=== PATIENT | male | born 1935 | race Two or more races ===

== ENCOUNTER 2017-05-04 13:04 | Emergency (ER) | payer OTHER ==
[~2017-05-04] VITALS: Ht 170.2 cm; Wt 89.3 kg
[2017-05-04 14:02] VITALS: BP 163/56
== END 2017-05-04 14:02 | disposition home or self-care (01) ==
LOC: ED 13:04
DX: S22.32XA Fracture of one rib, left side, initial encounter for closed fracture (principal); W08.XXXA Fall from other furniture, initial encounter; Y93.89 Activity, other specified; Y99.8 Other external cause status; Y92.89 Other specified places as the place of occurrence of the external cause

== ENCOUNTER 2018-12-23 08:03 | Inpatient (IN) | payer OTHER ==
[~2018-12-23] VITALS: Ht 188 cm; Wt 94.3 kg
--- NOTE | 2018-12-23 08:21 | NUR ---
PT BIB [facility] WITH C/O SYNCOPAL EPISODE. COSTUMER ASSISTANT COMPLETE. AT BEDSIDE PT IS AAOX4. RESPS E/U. SKIN IS PINK AND WARM. PT HOOKED UP TO FULL CM. BED IN LOWEST POSITION WITH BED RAILS UP X2 FOR SAFETY. CALL LIGHT WITH IN REACH.
--- NOTE | 2018-12-23 08:22 | NUR ---
ED PHYSICIAN AT BEDSIDE FOR PATIENT EVALUATION. MEDICAL SCREENING EXAMINATION COMPLETED BY ED PHYSICIAN DR. ARREGUIN
[2018-12-23 09:19] LABS: CALCIUM 8.7 mg/dL (8.5-10.1); CARBON DIOXIDE 28.8 mmol/L (21-32); CHLORIDE SERUM 104 mmol/L (98-107); CREATININE SERUM 0.8 mg/dL (0.7-1.3); GLUCOSE SERUM 116 mg/dL (74-106); POTASSIUM SERUM 4.5 mmol/L (3.5-5.1); SODIUM SERUM 141 mmol/L (136-145)
[2018-12-23 09:23] LABS: ALBUMIN 3.8 g/dL (3.4-5.0); ALKALINE PHOSPHATASE 100 U/L (46-116); ALT/SGPT 30 U/L (16-63); AST/SGOT 34 U/L (15-37); CHOLESTEROL 164 mg/dL (<200); HDL CHOLESTEROL 48 mg/dL (40-60)
[2018-12-23 09:43] LABS: TOTAL PROTEIN, SERUM 8.4 g/dL (6.4-8.2)
--- NOTE | 2018-12-23 09:49 | NUR ---
PT RESTING IN SEMI-FOWLERS POSITION. NO ACUTE DISTRESS NOTED AEB PT CALM AND COOPERATIVE, PT SPEAKING IN FULL SENTANCES, PT AAOX4, RESPS EVEN AND UNLABORED, HR=74 RR=17 SP02=97% ON RA.
--- NOTE | 2018-12-23 10:20 | NUR ---
PT'S DAUGHTER CALLED. HANDED PT PHONE SO HE CAN TALK TO HER. RESPS E/U, SKIN IS PINK, WARM AND DRY, PT CALM AND COOPERATIVE.
[2018-12-23 10:30] LABS: BASOPHIL % 0.3 % (0-2); PLATELET COUNT 140 x10^3mcL (130-400)
--- NOTE | 2018-12-23 11:09 | NUR ---
ANDRES GALILEA IS DAUGHTER AND PRIMARY CONTACT [phone].
--- NOTE | 2018-12-23 11:10 | NUR ---
PT C/O PAIN LOCATED IN BACK AND HIP. PT STS "IT HURTS WHEN I MOVE". DR. ARREGUIN MADE AWARE. NEW ORDERS. SEE EMAR FOR DETAILS.
--- NOTE | 2018-12-23 11:12 | NUR ---
DAUGHTER ANDRES IS TRYING TO GET LIST OF MEDICATIONS. SON NOW AT BEDSIDE. NO CHANGE IN PT STATUS. PT NOTED JOKING WITH DAUGHTER AND SMILING.
--- NOTE | 2018-12-23 11:39 | NUR ---
LOCAL SUSANNAH GODDARD IS GRANDSON AND HE LIVES IN THE [place] IF YOU NEED ANOTHER POINT OF CONTACT [phone]
--- NOTE | 2018-12-23 13:43 | NUR ---
REPORT GIVEN TO NITHIN FROM TELE UNIT TO ASSUME CARE.
--- NOTE | 2018-12-23 13:44 | NUR ---
RECEIVED REPORT FROM ED NURSE. PATIENT WILL BE COMMING UP TO THE FLOOR SHORTLY.
[2018-12-23 14:11] LABS: UA SPECIFIC GRAVITY 1.025 (1.005-1.035); microscopic required? YES
[2018-12-23 14:12] LABS: urine erythrocyte 2+ (NEGATIVE)
--- NOTE | 2018-12-23 14:40 | NUR ---
CONTACTED DR. ALEXANDER TOLD HIM ABOUT POSITIVE UA. TELEPHONE ORDER PER DR ALEXANDER, CONTINUE ROCEPHIN 1 GRAM IV DAILY FOR INFECTION.
[2018-12-23 14:48] VITALS: BP 165/98
--- NOTE | 2018-12-23 14:50 | NUR ---
SPOKE WITH DR ALEXANDER REGARDING POSITIVE UA. TELEPHONE ORDER PER DR ALEXANDER. ROCEPHIN 1 GRAM IV DAILY.
--- NOTE | 2018-12-23 15:03 | NUR ---
RECEIVED PT FROM ER, PT ADMIT FOR SYNCOPE,DEHYDRATION, PT IS A/O X4, VERBAL RESPONSIVE, ABLE TO TELL WHAT HE NEEDS. LUNG SOUND CLEAR BILATERAL, NO COUGH, NO SOB, PT IS ON TELE 15, A FIB, DENY ANY CHEST PAIN OR DISCOMFORT, BOWEL SOUND PRESENT ALL 4 QUADRANTS, NO DISTENTION, NO TENDER. PEDAL PULSE PRESENT BOTH FEET, NO EDEMA, IV AT RIGTH AC, NO LEAKING, NO INFILTRATION. SKIN TEAR AT LEFT FA AND LEFT ELBOW. CDI, ALL ADLS ASSIST, ALL NEED MET, CALL LIGHT IN REACH, WILL CONTINUE TO MONITOR.
--- NOTE | 2018-12-23 16:03 | NUR ---
PATIENT IS RESTING COMFORTABLY IN BED. NO APPARENT SIGNS OF SOB, OR RESPIRATORY DISTRESS. IV INFUSING WELL. PATIENT STATES THAT THE MEDICATION RECEIVED EARLIER WAS EFFECTIVE AND HAS 0/10 PAIN AT THIS TIME. PATIENT DENIES AY OTHER NEEDS AT THIS TIME.
--- NOTE | 2018-12-23 17:56 | NUR ---
TALKED TO FAMILY MEMBER REGARDING THE HOME MEDICATION BUT PT UNABLE TO REMEMBER WHAT HOME MEDICATION HE TOOK AND FAMILY STATE WILL BRING THE HOME MEDICAIOTN HER LATER. WILL CONTINUE TO MONITOR THE PT.
--- NOTE | 2018-12-23 18:02 | NUR ---
PATIENT IS RESTING COMFORTABLY IN BED TALKING WITH A FAMILY MEMBER ON THE PHONE. THERE IS FAMILY AT BEDSIDE. QUESTIONS AND CONCERNS ADDRESSED. SAFETY PRECAUTIONS MAINTAINED. PATIENT DENIES PAIN AT THIS TIME. NO APPARENT RESPIRATORY DISTRESS NOTED.
--- NOTE | 2018-12-23 18:39 | NUR ---
PATIENT IS STABLE, RESTING COMFORTABLTY IN BED. THERE IS NO APPARENT SIGNS OF SOB, CHEST PAIN OR RESPIRATORY DISTRESS. PATIENT DENIES PAIN AT THIS TIME. IV IS INFUSING WELL, NO REDNESS NOTED. FAMILY IS AT BEDSIDE. QUESTIONS AND CONCERNS ADDRESSED, SAFETY PRECAUTIONS MAINTANED. WILL ENDORSE CARE TO PRINT LINE FEEDER NURSE.
--- NOTE | 2018-12-23 20:00 | NUR ---
AAO X4 VERBAL ARMENIAN SPEAKING BUT CAN SPEAK FLUENT WELSH, NO HEADACHE OR DIZZINESS, FOLLOWS SIMPLE COMMANDS, DENIES PAIN, NO DISTRESS LUNGS CTA, TELE #[address] WITH DE[address] SEGMENT, NO CP OR PRESSURE HR @ 60'S NO CP OR PRESSURE, IVF NS INFUSING @ 80'S IV ACCESS @ LAC PATENT NON INFIL, DAUGHTER AT BEDSIDE FOR VISIT, FOLLOWED PT HOME MEDS, PER DAUGHTER THE PARTNER WILL BRING IT IN AM, SHIFT ASSESSMENT DONE, ATTENDED NEEDS, CONT TO MONITOR.
[2018-12-23 20:33] VITALS: BP 145/74
--- NOTE | 2018-12-24 03:19 | NUR ---
PT SLEEPING, NO SIGNIFICANT CHANGES, VISUAL CHECKED AT INTERVALS.
[2018-12-24 04:55] VITALS: BP 145/73
--- NOTE | 2018-12-24 06:27 | NUR ---
PT SLEPT WELL DURING THE SHIFT, NO EPISODES OF SYNCOPE, IVF INFUSING WELL @80CC/HR, SR/SB IN THE MONITOR, NO CHEST DISCOMFORTS, WILL ENDORSE TO INCOMING SHIFT FOR F/U CARE.
--- NOTE | 2018-12-24 07:30 | NUR ---
AAO TIMES 4. TELE # 15 A FIB 70'S. LUNGS CTA. NO SOB. O2 SAT ON RA 95%. BS'S ACTIVE TIMES 4. FAJARDO, C/O LOWER BACK PAIN, HE FELL AT HOME. DR WARE AWARE OF THE LOWER BACK PAIN, HE ORDERED A K-PAD, PT, AND ULTRAM FOR PAIN. PERIPHERAL PULSES PALPABLE. NO EDEMA. COOPERATIVE.
--- NOTE | 2018-12-24 08:17 | NUR ---
APPLIED K PAD TO LOWER BACK ORDERED, IN 30 MINUTE ON CYCLES.
[2018-12-24 08:51] VITALS: BP 127/94
[2018-12-24] MEDS ORDERED: ISOSORBIDE DINIT5 M2 PO (11:49)
[2018-12-24] MEDS ORDERED: FINASTERIDE5 M1 PO (11:50)
[2018-12-24 13:35] LABS: PLATELET COUNT 144 x10^3mcL (130-400); RED CELL DISTRIBUTION WIDTH 13.8 % (11.5-14.5)
[2018-12-24 13:37] LABS: BASOPHIL % 0 % (0-2)
[2018-12-24 13:52] VITALS: BP 150/87
[2018-12-24 14:23] LABS: CALCIUM 8.7 mg/dL (8.5-10.1); CARBON DIOXIDE 25.9 mmol/L (21-32); CHLORIDE SERUM 101 mmol/L (98-107); CREATININE SERUM 0.8 mg/dL (0.7-1.3); GLUCOSE SERUM 113 mg/dL (74-106); SODIUM SERUM 136 mmol/L (136-145)
--- NOTE | 2018-12-24 16:19 | NUR ---
HE STATES THAT IT IS OK TO TALK WITH DTR ANDRES CALERO [phone] ABOUT HIS MEDICAL CARE, THERE IS NO ROOM TO ADD HER ON TO THE FACESHEET.
[2018-12-24 17:44] VITALS: BP 149/92
--- NOTE | 2018-12-24 17:45 | NUR ---
AAO TIMES 3, FORGETFUL. TELE # 15 SR WITH SLY. COOPERATIVE. VARIOUS FAMILY CAME TO VISIT TODAY, HIS DTR ANDRES AND SON KAREY BOTH CAME AND ALSO HIS SISTER. I AM STILL WAITING FOR ALBIN TO BRING IN HIS HOME MEDICATION BLOOD THINNER, SHE BROUGHT IN OTHER MEDS BUT NOT THIS ONE. THE DTR AND SON ARE AWARE AND THE SISTER TOLD HER TO BRING IN HIS BLOOD THINNER WE DONT KNOW WHAT IT IS AND THE PATIENT CANT REMEMBER. I CALLED THE PHARMACY [facility] ON [place] WHERE HIS OTHER MEDICATIONS CAME FROM, BUT THEY HAVE NO RECORD OF ANY BLOOD THINNERS. THE PATIENT CANT REMEMBER THE OTHER PHARMACY HE USES, OR RATHER WHICH PHARMACY HIS PARTNER ALBIN USES TO GET HIS MEDICATIONS. PER THE DTR ANDRES, ALBIN WILL BRING IN THE OTHER MEDICATION TOMORROW.
--- NOTE | 2018-12-24 19:45 | NUR ---
AWAKE, ALERT, ABLE TO MAKE NEEDS KNOWN. SKIN WARM AND DRY TO TOUCH. DRESSING INTACT TO RIGTH FOREARM ,WITH SKIN TEAR, NO ACTIVE BLEEDING NOTED. RESPIRATION EVEN AND UNLABORED. NO S/S OF ACUTE DISTRESS. IVF NS INFUSING VIA PERIPHERAL LIONE AT THE RAC TOLERATING WELL. DENIES ANY PAIN/DISCOMFORT AT THIS TIME. ON TELE #15 SHOWS AFIB. DENIES ANY CHEST PAIN/DISCOMFORT. STILL WAITNG FOR SANAZ TO BRING THE BLOOD THINNER, ENDORSED BY AM RN . WILL CONTINUE TO MONITOR.
[2018-12-24 20:23] VITALS: BP 124/88
--- NOTE | 2018-12-25 | NUR ---
IV SITE RAC LEAKING WITH REDNESS AROUND THE IV SITE. PT HAS POOR VENOUS ACCESS. NEW IV ACCESSS RESTARTED AT THE RAC WITH GOOD BLOOD FLOW RETURN. IVF NS AT 80ML/HR RESUMED , INFUSING AT 80ML/HR ORDERED.
--- NOTE | 2018-12-25 03:12 | NUR ---
PT SLEEPING. NO SIGNIFICANT CHANGES. FREQUNET VISUAL CHECKED. BED IN LOWEST POSITION.
[2018-12-25 05:10] VITALS: BP 121/88
--- NOTE | 2018-12-25 06:33 | NUR ---
CONTINUES ON IVF NS AT 80ML/HR TOLERATING WELL. NO SIGNIFICCANT CHANGES. KEPT CLEAN AND DRY. ALL NEEDS ATTENDED.
--- NOTE | 2018-12-25 07:56 | NUR ---
AAO TO PERSON AND PLACE, FORGETFUL. TELE # 15 A FIB 66. BS'S ACTIVE TIMES 4. PERIPHERAL PULSES PALPABLE. NO EDEMA. FAJARDO. VERSATEL DRESSINGS APPLIED TO LEFT ELBOW SKIN TEAR AND LFA SKIN TEAR, BOTH HEALING AND WOUNDS DRY NOW. NO C/O PAIN AT THIS TIME.
[2018-12-25 09:12] VITALS: BP 164/92
[2018-12-25 12:42] VITALS: BP 173/89
--- NOTE | 2018-12-25 14:54 | NUR ---
PATIENTS GIRLFRIEND DID NOT COME BACK TO SHOW ME WHAT BLOOD THINNERS HE IS ON, OTHER FAMILY CAME IN AND TRIED TO CALL HER, BUT SHE DIDNT ANSWER HER PHONE. I CALLED DR WARE, AND HE ORDERED LOVENOX 40 MG SQ DAILY TO BE GIVEN.
[2018-12-25 17:58] VITALS: BP 177/91
--- NOTE | 2018-12-25 18:06 | NUR ---
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 I MADE THE PATIENT ROOM CONTACT ISOLATION. I CALLED [facility] AND DR HERNÁNDEZ CALLED ME AND HE IS NOW AWARE, HE CHANGED THE ANTIBIOTIC TO ZOSYN. AAO TO PERSON, AND SOMEWHAT TO PLACE, FORGETFUL. NO C/O PAIN. NO SOB. VS'S STABLE. COOPERATIVE. HE IS NOW ON LOVENOX, SINCE THE GIRLFRIEND NEVER BROUGHT IN THE BLOOD THINNER HE IS ON AT HOME.
--- NOTE | 2018-12-25 18:30 | NUR ---
I CALLED DR HERNÁNDEZ'S EXCHANGE TO NOTIFY HIM OF PATIENTS BLOOD PRESSURE TRENDS, AWAITING HIS CALL BACK.
--- NOTE | 2018-12-25 19:20 | NUR ---
PT RECIEVED FROM THE DAY SHIFT RN, PT IS ALERT AND ORIENTED X2, PT HAS BEEN FORGETFUL AT TIMES. PT HAS NO COMPLAINT OF PAIN AT THIS TIME. SAFETY AND COMFORT MEASURES MAINTAINED, BED IN LOWEST POSITION, CALL LIGHT WITHIN REACH, WILL CONTINUE TO MONITOR AT THIS TIME.
--- NOTE | 2018-12-25 19:30 | NUR ---
[facility] PAGED REGARDING ELEVATED BP. AWAITING CALL BACK. ORGANIC GARDENING TEACHER IS DR HERNÁNDEZ, AWAITING CALL BACK.
--- NOTE | 2018-12-25 20:55 | NUR ---
PT BP IS 171/[address] HERNÁNDEZ CALLED AGAIN AND AWAITING CALL BACK.
--- NOTE | 2018-12-25 21:13 | NUR ---
DR HERNÁNDEZ RETURNED PAGE, DR HERNÁNDEZ MADE AWARE OF ELEVATED BP. PER DR HERNÁNDEZ GIVE IVP HYDRALAZINE PRN Q6HR FOR SBP >160.
[2018-12-25 21:31] VITALS: BP 171/98
--- NOTE | 2018-12-25 21:48 | NUR ---
IVP HYDRALAZINE GIVVEN. NO S/S OF DISTRESS NOTED.
[2018-12-25 22:06] VITALS: BP 119/64
--- NOTE | 2018-12-25 22:06 | NUR ---
POST HYDRALAZINE VITAL SIGNS: BP 119/64 HR 74 SPO2 92%. NO S/S OF DISTRESS AT THIS TIME. PT IS FORGETFUL AT TIMES. WILL CONTINUE TO MONITOR AT THIS TIME.
--- NOTE | 2018-12-25 22:28 | NUR ---
PT COMPLAINING OF COUGH AND CHEST PAIN ONLY WHEN COUGHING. PER DR HERNÁNDEZ ORDERED PROMETHAZINE DM 5ML Q6HR PRN. NO FURTHER ORDERS GIVEN.
--- NOTE | 2018-12-26 00:12 | NUR ---
PT IS AWAKE AND WATCHING TV AT THIS TIME. PT HAS BEEN CALM AND COOPERATIVE WITH CARE, PT IS ALERT AND ORIENTED X2, FORGETFUL AT TIMES. PT COMPLAINS OF RIGHT LEG PAIN/HIP. PT STATES PAIN IS 8/10. ULTRAM PO GIVEN ( SEE MAR) WILL CONTINUE TO MONITOR FOR PAIN IMPROVEMENT.
--- NOTE | 2018-12-26 04:13 | NUR ---
PT IS RESTING IN BED WITH EYES CLOSED AT THIS TIME. PT HAS BEEN CALM AND COOPERATIVE WITH CARE. NO ACUTE DISTRESS NOTED. NO S/S OF PAIN NOTED. IV INFUSING AND INTACT AT THIS TIME. SAFETY AND COMFORT MEASURES MAINTAINED, BED IN LOWEST POSITION, CALL LIGHT WITHIN REACH.
--- NOTE | 2018-12-26 05:20 | NUR ---
PT HAS BEEN SLEEPING IN INTERMITTENT INTERVALS THROUGHOUT THE SHIFT. PT HAS BEEN CALM AND COOPERATIVE WITH CARE, NO ACUTE DISTRESS NOTED. NO S/S OF PAIN NOTED. SAFETY AND COMFORT MEASURES MAINTAINED, BED IN LOWEST POSITION, CALL LIGHT WITHIN REACH, WILL ENDORSE CONTINUITY OF CARE TO THE ONCOMING RN.
[2018-12-26 05:22] VITALS: BP 132/76
--- NOTE | 2018-12-26 07:30 | NUR ---
RECEIVED PATIENT IN BED, ALERT AND ORIENTED, FORGETFUL AT TIMES. 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 IVF INFUSING WELL TO RT A/C. RESP EVEN AND UNLABORED, LUNGS CLEAR ON ROOM AIR. K-PAD TO BACK ORDERED. AMBULATES WITH UNSTEADY GAIT TO THE BATHROOM. GENERALIZED WEAKNESS NOTED. S/T TO LEFT ELBOW AND LEFT F/A NOTED. NO C/O PAIN OR DISCOMFORT NOTED. WILL CONTINUE TO MONITOR.
[2018-12-26 08:15] VITALS: Ht 188 cm; Wt 94.3 kg
--- NOTE | 2018-12-26 09:00 | NUR ---
DR WARE INTO SEE PATIENT THIS AM. NEW ORDERS RECEIVED FOR DISCHARGE HOME, AND PER DR WARE PT TO D/C HOME THIS AFTERNOON. SS TO [facility] UPON D/C. WILL CONTINUE TO MONITOR.
[2018-12-26] MEDS ORDERED: TYLENOL WITH CO1 TA2 PO (09:07)
[2018-12-26 09:33] VITALS: BP 167/95
--- NOTE | 2018-12-26 10:43 | NUR ---
I HAVE REVIEWED THE DATA COLLECTION BY ACCESS LIAISON (NAME):HAYDEN DOMINIQUE. ENTERED ON (DATE/TIME):12/26/18 PATIENT'S PLAN OF CARE WAS DISCUSSED AND REVIEWED WITH ACCESS LIAISON:HAYDEN DOMINIQUE. I CONCUR WITH THE DATA AND ANY EXCEPTIONS OR COMMENTS ARE LISTED BELOW:
--- NOTE | 2018-12-26 14:48 | NUR ---
PATIENT READY FOR D/C HOME. DAUGHTER ANDRES HERE TO TAKE PATIENT HOME. D/C PRESCRIPTIONS AND DISCHARGE INSTRUCTIONS GIVEN. PERSONAL BELONGINGS LIST SIGNED. EDUCATION PROVIDED. CONDITION APPEARS STABLE.
== END 2018-12-26 16:20 | disposition home health service (06) | DRG 552 ==
LOC: ED 08:03 → DU 12:23
PROVIDERS: Emergency Medicine; ADMIT Internal Medicine Pulmonary Disease
DX: M51.36 Other intervertebral disc degeneration, lumbar region (principal); E86.0 Dehydration; N40.0 Benign prostatic hyperplasia without lower urinary tract symptoms; I25.10 Atherosclerotic heart disease of native coronary artery without angina pectoris; Z68.27 Body mass index [BMI] 27.0-27.9, adult; Z85.030 Personal history of malignant carcinoid tumor of large intestine
CPT/HCPCS: 82962; 90715; 97116-GP; J0360; J0696; J1650; J2405; J2543; J3010; J7030; Q0092

== ENCOUNTER 2018-12-27 02:43 | Emergency (ER) | payer OTHER ==
[~2018-12-27] VITALS: Ht 182.9 cm; Wt 95.3 kg
[~2018-12-27 02:43] MED LIST: FINASTERIDE5 M1 PO; ISOSORBIDE DINIT5 M2 PO; TYLENOL WITH CO1 TA2 PO
[2018-12-27 02:53] VITALS: Ht 182.9 cm; Wt 95.3 kg
--- NOTE | 2018-12-27 06:59 | NUR ---
PHYSICAL THERAPY DAILY NOTES CO-SIGN All documentation done by the Event Set Up Specialist for 12/27/18 has been reviewed. I agree with the documentation. Reviewed/Co-Signed by: Leslie Woods PT Documentation Done by:MELL VELEZ [facility]
[2018-12-27 11:58] VITALS: BP 149/87
== END 2018-12-27 11:58 | disposition home or self-care (01) ==
LOC: ED 02:43
DX: M54.5 Low back pain (principal); Z91.048 Other nonmedicinal substance allergy status
CPT/HCPCS: 97116-GP; 97530-GP; J2270